=== PATIENT | female | born 1970 | race Caucasian/White ===

== ENCOUNTER 2020-08-16 17:51 | Emergency (ER) | payer OTHER ==
[2020-08-16 19:53] LABS: HEMOGLOBIN 11.5 gm/dl (12.3-15.3); RED BLOOD COUNT 4.18 M/UL (4.00-5.10); WHITE BLOOD COUNT 7.6 K/UL (4.5-11.0)
[2020-08-17] MEDS ORDERED: FLOVENT 110.088 GM/I INH (02:20)
[2020-08-17] MEDS ORDERED: PROAIR DIGIHAL90 MCG INH (02:20)
[2020-08-17] MEDS ORDERED: NASONEX17 GM (02:20)
[2020-08-17] MEDS ORDERED: ZOFRAN 4 MG TAB4 MG PO (02:20)
[2020-08-17] MEDS ORDERED: MEDROL DOSEPAK 24 MG PO (02:20)
== END 2020-08-17 02:55 | disposition home or self-care (01) ==
LOC: ER1 17:51
PROVIDERS: Emergency Medicine
DX: U07.1 COVID-19 (principal); I10 Essential (primary) hypertension; J44.9 Chronic obstructive pulmonary disease, unspecified; F17.200 Nicotine dependence, unspecified, uncomplicated
CPT/HCPCS: 36415; 71045; 80053; 81001; 83605; 83690; 84484; 85025; 85379; 85610; 85730; 87081; 87880; 93005; 99285; M0239; U0002